=== PATIENT | male | born 1990 | race Caucasian/White ===

== ENCOUNTER 2021-06-12 01:43 | Emergency (ER) | payer MEDICAID ==
[2021-06-12 02:09] VITALS: BP 132/108; PULSE 83
[2021-06-12] MEDS ORDERED: Doxycycline 100 MG Cap PO ONE (02:16)
[2021-06-12] MEDS ORDERED: metroNIDAZOLE 250 MG Tab PO ONE (02:16)
[2021-06-14 08:12] LABS: CHLAMYDIA TRACHOMATIS, NAA Negative (Negative); NEISSERIA GONORRHOEAE, NAA Positive (Negative)
== END 2021-06-12 02:25 | disposition home or self-care (01) ==
LOC: JP.ED 01:43
DX: A64 Unspecified sexually transmitted disease (principal)
CPT/HCPCS: 81001; 87491; 87591; 99281; 99283; A9270-GY